=== PATIENT | female | born 1940 | race Caucasian/White ===

== ENCOUNTER 2017-11-05 08:29 | Outpatient (CLI) | payer MEDICARE, OTHER ==
[~2017-11-05] VITALS: Ht 160 cm; Wt 76.8 kg
--- NOTE | ~2017-11-05 | HEMODYNAMI ---
PATIENT:KATE CORONA MEDICAL RECORD: [id number] : 36 LOCATION:[facility] ADMISSION DATE: 11/05/17 Generatedon:11/05/201711:15 Patient name: KATE CORONA Patient #: [id number] SSN: : 1940 Date of study: 11/05/2017 Page: Of Hemodynamic Procedure Report Patient Data Patient Demographics Procedure consent was obtained First Name: KATE Gender: Female Last Name: CJ : 1940 Patient #: [id number] Age: 77 year(s) Race: Unknown Additional ID: [id number] Contact details [address]: [address] [place] [address] State: [place] City: [place] Zip code: [address] Past Medical History Allergies Allergen Reaction Date Comments Reported Other allergy 11/05/2017 AMITRIPTALINE, CELEXA, EFFEXOR, FENOFIBRATE, HCTZ, LIPITOR,LISINOPRIL, LIVALO, PREVACID, NEXIUM, STATINS Admission Admission Data Admission Date: 11/05/2017 Admission Time: 8:29 Procedure Procedure Types Cath Procedure Diagnostic Procedure [facility] w/Coronaries Sedation Charges Moderate Sedation up to 15 minutes Procedure Description Procedure Date Procedure Date: 11/05/2017 Procedure Start Time: 10:58 Procedure End Time: 11:15 Procedure Staff Name Function Nik Campos MD Performing Physician Sandra Pace RT Monitor Tracie High RN Nurse January Vanegas RN Nurse Kita Anthony RT Scrub Procedure Data Cath Procedure Fluoroscopy Diagnostic fluoroscopy Total fluoroscopy Time: 2 time: 2 min min Diagnostic fluoroscopy Total fluoroscopy dose: 548 dose: 548 mGy mGy Contrast Material Contrast Material Type Amount (ml) Isovue 300 35 Entry Location Entry Primary Successful Side Size Upsize Upsize Entry Closure Peguero ccessful Closure Location (Fr) 1 (Fr) 2 (Fr) Remarks Device Remarks Radial Right 6 Fr Mechanical artery Short Compression Femoral Right 5 Fr Exoseal artery Estimated blood loss: 5 ml Diagnostic catheters Device Type Used For End Catheter Placement DIAGNOSTIC Bunola 110cm 5 LV Angiography Fr catheter ([id number]) MULTIPACK Pigtail 5 Fr LV Angiography catheter MULTIPACK JL 4.0 5Fr Left Coronary catheter Angiography MULTIPACK 3DRC 5Fr Right Coronary catheter Angiography Procedure Complications No complications Procedure Medications Medication Administration Route Dosage Oxygen etCO2 Nasal cannula 2 l/min Lidocaine 2% added to field 20 Heparin Flush Bag added to field 2 bags (1000units/500ml NS) 0.9% NaCl I.V. 100 ml/hr Radial Cocktail I.A. 1 syringe (Verapomil 2mg/Nitro 400mcg/Heparin 1500units) Versed I.V. 1 mg Fentanyl I.V. 50 mcg Versed I.V. 1 mg Fentanyl I.V. 50 mcg Fentanyl I.V. 50 mcg Nitroglycerin IC/IA I.C. 300 mcg Hemodynamics Rest Heart Rate: 66 (bpm) Snapshots Pre Cath Intra NCS Post Cath Vital Signs Time Heart Resp SPO2 etCO2 NIBP (mmHg) Rhythm Pain Sedation Rate (ipm) (%) (mmHg) Status Level (bpm) 10:47:38 65 18 96 37 116/73(95) NSR 0 (11) 10(A) , No pain 10:52:52 67 13 96 36.9 129/66(107) NSR 0 (11) 10(A) , No pain 10:57:30 60 13 94 28.7 126/66(94) NSR 0 (11) 9(A) , No pain 11:02:05 71 15 97 30.2 130/82(119) NSR 0 (11) 9(A) , No pain 11:06:44 73 13 94 30 114/71(92) NSR 0 (11) 9(A) , No pain 11:11:20 66 16 95 39.2 124/62(106) NSR 0 (11) 10(A) , No pain Medications Time Medication Route Dose Verified Delivered Reason Notes Effectiveness by by 10:51:11 Oxygen etCO2 2 l/min Nik Hodges used for Nasal Andres High smooth and burr worker composites cannula 10:51:19 Lidocaine 2% added 20ml Nik Zaragoza for local to vial Andres Campos MD anesthetic field 10:51:35 Heparin Flush added 2 bags Nik Zaragoza used for Bag to Andres Campos MD procedure (1000units/500ml field NS) 10:51:44 0.9% NaCl I.V. 100 Nik Hodges Per ml/hr Andres High RN physician 10:54:50 Versed I.V. 1 mg Nik Hodges for sedation Andres High RN 10:54:56 Fentanyl I.V. 50 mcg Nik Hodges for sedation Andres High RN 11:00:14 Radial Cocktail I.A. 1 Nik Zaragoza for (Verapomil syringe Andres Campos MD vasodilation 2mg/Nitro 400mcg/Heparin 1500units) 11:00:37 Versed I.V. 1 mg Nik Hodges for sedation Andres High RN 11:00:40 Fentanyl I.V. 50 mcg Nik Hodges for sedation Andres High RN 11:06:04 Fentanyl I.V. 50 mcg Nik Hodges for sedation Andres High RN 11:08:19 Nitroglycerin I.C. 300 mcg Nik Zaragoza for IC/IA Andres Campos MD vasodilation Procedure Log Time Note 10:22:59 Time tracking: Regular hours (M-F 7:00 - 5:00) 10:23:03 Plan of Care:Hemodynamics will remain stable., Cardiac rhythm will remain stable., Comfort level will be maintained., Respiratory function will remain adequate., Patient/ family verbilizes understanding of procedure., Procedure tolerated without complication., Recovers from procedure without complications.. 10:27:41 Tracie High RN sent for patient. Start room use. 10:35:47 Patient received from Pre/Post Procedure Room to CCL 1 Alert and oriented. Tansferred to table in Supine position. 10:35:50 Signed procedure consent form obtained from patient. 10:35:51 Warm blankets applied, and gemma hugger turned on for patient comfort. 10:35:52 Correct patient and procedure confirmed by team. 10:35:53 ECG and BP/O2 sat monitors applied to patient. 10:46:47 Vital chart was started 10:46:50 Rhythm: sinus rhythm 10:46:52 Full Disclosure recording started 10:48:21 H&P Date Dictated: 11/05/2017 Within 30 days and on chart., H&P Addendum completed by physician on day of procedure. (MUST COMPLETE FOR ALL OUTPATIENTS), New H&P dictated by physician.. 10:48:26 Baseline sample Acquired. 10:48:29 Pre-procedure instructions explained to patient. 10:48:29 Pre-op teaching completed and patient verbalized understanding. 10:48:31 Family in patients room. 10:48:33 Patient NPO since Midnight. 10:50:42 Patient allergic to Other allergyAMITRIPTALINE, CELEXA, EFFEXOR, FENOFIBRATE, HCTZ, LIPITOR,LISINOPRIL, LIVALO, PREVACID, NEXIUM, STATINS 10:50:45 Is the patient allergic to Iodine/contrast media? No. 10:50:48 Is patient on blood thinner?No 10:50:52 Patient diabetic? No. 10:50:55 Previous problem with sedation/anesthesia? No ? 10:50:56 Snore? Yes 10:50:57 Sleep apnea? No 10:50:58 Deviated septum? No 10:50:59 Opens mouth fully? Yes 10:51:00 Sticks out tongue? Yes 10:51:01 Airway obstruction? No ? 10:51:03 Dentures? No ? 10:51:05 Pre procedure: right dorsailis pedis pulse 2+ Normal; easily identifiable; not easily obliterated 10:51:09 Modified Kenneth's test Ulnar < 7 seconds 10:51:11 Oxygen 2 l/min etCO2 Nasal cannula was administered by Tracie High RN; used for procedure; 10:51:11 Patient pain scale 0/10 ?. 10:51:17 IV patent on arrival in left forearm with 0.9% NaCl at [facility]. 10:51:19 Lidocaine 2% 20ml vial added to field was administered by Nik Campos MD; for local anesthetic; 10:51:20 Lab results completed and on chart. 10:51:23 Right Radial & Right Groin area was prepped with chlora-prep and draped in sterile fashion 10:51:23 Alarms reviewed by R. N. 10:51:24 Sharps counted by scrub and verified by R.N. 10:51:27 Use device set Radial Dx or PCI 10:51:28 ACIST Syringe (21218) opened to sterile field. 10:51:28 Medline Cath Pack ([id number]) opened to sterile field. 10:51:29 Bag Decanter (2002) opened to sterile field. 10:51:29 DIAGNOSTIC WIRE .035 260cm J wire ([id number]) opened to sterile field. 10:51:30 ACIST Hand Control (15602) opened to sterile field. 10:51:30 ACIST Manifold (03308) opened to sterile field. 10:51:31 Tegaderm 4 x 4 (1626W) opened to sterile field. 10:51:31 MBrace Wrist Support ([id number]) opened to sterile field. 10:51:32 SHEATH 6Fr Prelude Radial ([id number]) opened to sterile field. 10:51:35 Heparin Flush Bag (1000units/500ml NS) 2 bags added to field was administered by Nik Campos MD; used for procedure; 10:51:44 0.9% NaCl 100 ml/hr I.V. was administered by Tracie High RN; Per physician; 10:53:52 Final Timeout: patient, procedure, and site verified with staff and physician. All members of the team are in agreement. 10:53:56 Right Radial site verified by team. 10:53:59 Physical assessment completed. ASA score P 2 - A patient with mild systemic disease as per Nik Campos MD. 10:54:02 Sedation plan: IV Moderate Sedation Medication:Versed, Fentanyl 10:54:50 Versed 1 mg I.V. was administered by Tracie High RN; for sedation; 10:54:56 Fentanyl 50 mcg I.V. was administered by Tracie High RN; for sedation; 10:58:33 Procedure started. 10:58:37 Local anesthetic to right radial artery with Lidocaine 2% by Nik Campos MD.INITIAL ACCESS ONLY 10:58:57 A 6 Fr Short sheath was inserted into the Right Radial artery 11:00:05 A DIAGNOSTIC Bunola 110cm 5 Fr catheter ([id number]) was advanced over the wire and used for LV Angiography. CATHETER REMOVED, UNABLE TO ADVANCE UP ARM 11:00:14 Radial Cocktail (Verapomil 2mg/Nitro 400mcg/Heparin 1500units) 1 syringe I.A. was administered by Nik Campos MD; for vasodilation; 11:00:37 Versed 1 mg I.V. was administered by Tracie High RN; for sedation; 11:00:40 Fentanyl 50 mcg I.V. was administered by Buffie High RN; for sedation; 11:01:05 GLIDE wire advanced. 11:02:31 Use device set Multipack Set 11:02:37 DIAGNOSTIC Multipack 5Fr catheter set ([id number]) opened to sterile field. 11:02:45 SHEATH Prelude 5Fr 0.035 (XAF-8O-87-035) opened to sterile field. 11:02:52 Local anesthetic to right femoral artery with Lidocaine 2% by Nik Campos MD.ADDITIONAL ACCESS 11:03:16 GLIDE WIRE MERIT Angled 260cm ([id number]) opened to sterile field. 11:03:30 A 5 Fr sheath was inserted into the Right Femoral artery 11:03:51 A MULTIPACK Pigtail 5 Fr catheter was advanced over the wire and used for LV Angiography. 11:03:58 LV gram done using CARRANZA 11:04:02 EF : 60 % 11:04:06 Injector settings: Ml/sec: 10, Volume: 20, 11:04:07 Catheter removed. 11:04:20 A MULTIPACK JL 4.0 5Fr catheter was advanced over the wire and used for Left Coronary Angiography. 11:05:21 Use device set TAUTH PCI 11:05:33 Catheter removed. 11:06:04 Fentanyl 50 mcg I.V. was administered by Tracie High RN; for sedation; 11:06:07 A MULTIPACK 3DRC 5Fr catheter was advanced over the wire and used for Right Coronary Angiography. 11:08:19 Nitroglycerin IC/IA 300 mcg I.C. was administered by Nik Campos MD; for vasodilation; 11:09:00 Catheter removed. 11:09:29 Sheath removed intact; hemostasis achieved with Exoseal to the Right Femoral artery. 11:09:32 Procedure ended.(Physican Out) 11:10:37 Fluoroscopy time 02.00 minutes. 11:10:40 Fluoroscopy dose: 548 mGy 11:10:40 Flurop Dose total: 548 11:10:44 Contrast amount:Isovue 300 35ml. 11:10:45 Sharps counted by scrub and verified by R.N. 11:11:05 Sheath removed intact; hemostasis achieved with Mechanical Compression to the Right Radial artery. 11:11:14 TR band inflated with 12cc of air. 11:11:16 Insertion/operative site no bleeding no hematoma. 11:11:21 Post-op/insertion site Right Femoral artery dressed using a 4 x 4 and Tegaderm. 11:11:25 Post right femoral artery:stable, clean and dry 11:11:30 Post left brachial artery:stable, clean and dry 11:11:32 Post Procedure Pulses reassessed and unchanged 11:11:35 Post-procedure physical assessment completed. ASA score P 2 - A patient with mild systemic disease as per Nik Campos MD. 11:11:41 Post procedure rhythm: unchanged. 11:11:58 Estimated blood loss: 5 ml 11:12:24 Post procedure instruction explained to patient.Patient verbalizes understanding. 11:12:25 Patient needs reinforcement of post procedure teaching. 11:13:18 Procedure type changed to Cath procedure, Diagnostic procedure, LHC, LHC w/Coronaries, Sedation Charges, Moderate Sedation up to 15 minutes 11:13:24 Procedure Complication : No complications 11:13:27 See physician's report for complete and final results. 11:13:39 TR BAND Standard ([id number]) opened to sterile field. 11:13:52 EXOSEAL 5Fr (EX500) opened to sterile field. 11:14:11 Procedure and supply charges have been captured, reviewed, submitted and are correct. 11:15:12 Vital chart was stopped 11:15:15 Report given to Pre/Post Procedure Room. 11:15:18 Patient transfered to Pre/Post Procedure Room with Stretcher. 11:15:25 Procedure ended. 11:15:25 Full Disclosure recording stopped 11:15:30 End room use (Document Last) Device Usage Item Name Manufacture Quantity Catalog Number Hospital Part Current M inimal Lot# / Charge Number Stock Stock Serial# Code ACIST Syringe Acist 1 71549 492461 869008 557164 2 0 (32599) [employer] Medline Cath Cardinal 1 [id number] 691809 81005 111730 5 Pack Health ([id number]) Bag Decanter Microtek 1 425961 41945 082958 5 () Medical Inc. DIAGNOSTIC WIRE [place] 1 539329 159382 217686 797030 3 0 .035 260cm J wire (301801) ACIST Hand Acist 1 80951 756867 769500 697778 5 Control (18004) [employer] Inc ACIST Manifold Acist 1 25169 944869 597400 327859 5 (46516) [employer] Inc Tegaderm 4 x 4 3M 1 1626W 258462 206059 496767 5 (1626W) MBrace Wrist Advanced 1 140-0250-00 232929 02176 107109 5 Support Vascular ([id number]) Dynamics SHEATH 6Fr Merit 1 [id number] 902545 457932 001386 5 Prelude Radial Medical ([id number]) DIAGNOSTIC Terumo 1 40-5013 345790 918143 965925 5 Bunola 110cm 5 Fr catheter (626943) DIAGNOSTIC Cardinal 1 GD8464 226950 26064 392805 3 0 Multipack 5Fr Health catheter set (FJ4188) SHEATH Prelude Merit 1 HOM-2W-13-035 017533 705062 865359 5 5Fr 0.035 Medical (KFL-1K-39-035) GLIDE WIRE Merit 1 [id number] 477947 933412 354553 5 MERIT Angled Medical 260cm ([id number]) MULTIPACK Cardinal 1 266683 5 Pigtail 5 Fr Health catheter MULTIPACK JL Cardinal 1 945092 5 4.0 5Fr Health catheter MULTIPACK 3DRC Cardinal 1 124286 5 5Fr catheter Health TR BAND Terumo 1 [id number] 102923 213992 843549 4 0 Standard ([id number]) EXOSEAL 5Fr Cardinal 1 EX500 193084 953459 952258 1 0 (EX500) Health Signature Audit [place] Stage Time Signature Unsigned Intra-Procedure 11/05/2017 Sandra 11:15:39 AM Counts RT(R) Signatures Monitor : Sandra Signature : Counts RT Date : Time : [facility] [address] [facility] [place] [address]
--- NOTE | ~2017-11-05 | OP ---
PATIENT NAME: KATE CORONA MEDICAL RECORD: [id number] :38 LOCATION:D[facility] ADMISSION DATE: SURGEON: CIARA TANG MD DATE OF OPERATION: 11/05/2017 PROCEDURES: 1. Left heart catheterization. 2. Selective coronary angiography. 3. Left ventriculogram. INDICATION: Chest pain compatible with angina. PROCEDURE IN DETAIL: After informed consent was obtained and after a detailed description of risks, benefits as well as alternative therapies, the patient elected to proceed with angiogram and heart catheterization. The right femoral area was prepped and draped in normal sterile fashion. Right femoral artery was cannulated via modified Seldinger technique with placement of 5-Tajik sheath. All catheters exchanged through this sheath. FINDINGS: The left ventriculogram was performed in standard 30-degree CARRANZA view, reveals good cardiac wall motion throughout all segments. Overall ejection fraction estimated 60%. SELECTIVE CORONARY ANGIOGRAPHY: 1. Left main is with no significant angiographic disease. 2. Left anterior descending has previously placed stents, these are widely patent with no significant restenosis. No disease elsewise throughout the LAD or its branches. 3. The left circumflex has moderate irregularities, but no flow-limiting stenosis. 4. Right coronary has moderate irregularities, but no flow-limiting stenosis. OVERALL IMPRESSION: Wide patency of the previously placed stents in the LAD. No disease elsewise. Continue medical management of the coronary artery disease and cardiac risk factors. TRANSINT:[id number] Voice Confirmation ID: [id number] DOCUMENT ID: [id number] CIARA TANG MD at 0923 CC: [id number] DICTATION DATE: 11/05/17 1115 LIAISON ENGINEER: 11/05/17 1211 DEP CLI 11/05/17 [place] [id number]
[2017-11-05] MEDS ORDERED: METOPROLOL TART50 MG PO (09:01)
[2017-11-05] MEDS ORDERED: ATIVAN1 MG PO (09:01)
[2017-11-05] MEDS ORDERED: ZOLOFT50 MG PO (09:02)
[2017-11-05 09:13] VITALS: BP 136/79; Ht 160 cm; Wt 76.8 kg
[2017-11-05 09:30] LABS: EOSINOPHILS 4.5 % (0-7); HEMATOCRIT 41.4 % (36.0-48.0); HEMOGLOBIN 14.2 g/dL (12-16); IMMATURE GRANULOCYTES 0.6 % (0-5); LYMPHOCYTES 24.8 % (15-50); MCH 30.8 pg (26.0-34.0); MCHC 34.3 g/dL (31.0-37.0); MCV 89.8 fL (80.0-100.0); MEAN PLATELET VOLUME 10.8 fL (7.4-10.4); MONOCYTES 15.4 % (2-11); NEUTROPHILS 53.7 % (40-80); PLATELET COUNT 176 10x3/uL (130-400); RBC 4.61 10x6/uL (4.00-5.40); RDW 13.4 % (11.5-14.5); WBC 4.9 10x3/uL (4.8-10.8)
[2017-11-05 09:32] LABS: ANION GAP 10.8 mmol/L (8-16); CALCIUM 8.9 mg/dL (8.5-10.1); CARBON DIOXIDE 27.5 mmol/L (21.0-32.0); CREATININE - SERUM 0.8 mg/dL (0.6-1.3); POTASSIUM - SERUM 4.3 mmol/L (3.5-5.1)
== END 2017-11-05 13:20 | disposition home or self-care (01) ==
LOC: D.CATH 08:29
PROVIDERS: Internal Medicine Interventional Cardiology
DX: I25.119 Atherosclerotic heart disease of native coronary artery with unspecified angina pectoris (principal); Z01.812 Encounter for preprocedural laboratory examination

== ENCOUNTER → 2017-11-15 12:44 | Outpatient (CLI) | payer MEDICARE, OTHER ==
[~2017-11-15 12:44] MED LIST: ATIVAN1 MG PO; METOPROLOL TART50 MG PO; ZOLOFT50 MG PO
== END | disposition home or self-care (01) ==
LOC: D.CT 12:44
DX: R79.1 Abnormal coagulation profile (principal)

== ENCOUNTER → 2017-11-16 12:17 | Outpatient (CLI) | payer MEDICARE, OTHER | END | disposition home or self-care (01) | LOC: D.CT 12:17 → D.LAB 17:15 → D.CT 17:30 | DX: R79.1 Abnormal coagulation profile (principal) ==